=== PATIENT | male | born 1975 ===

== ENCOUNTER 2022-06-10 15:52 | Emergency (ER) | payer BC, SELFPAY ==
--- NOTE | ~2022-06-10 | XR_ITS ---
EXAMINATION: XR RIBS, LEFT CLINICAL INFORMATION: Left-sided chest pain and rib pain COMPARISON: None TECHNIQUE: Frontal view of chest 3 views of the left ribs were obtained. FINDINGS: Lungs are clear. No consolidation, pneumothorax, or pleural effusion. The cardiomediastinal silhouette and pulmonary vasculature are normal. Osseous structures are unremarkable. Ribs are intact. No fractures are identified. Metallic BB over the left chest near the posterior seventh rib. XR/XR ribs LT min 3V w CXR1V IMPRESSION: Unremarkable examination.
[2022-06-10 16:07] VITALS: BP 145/74; PULSE 92; RESP 16; TEMP 36; O2SAT 96; BMI 29.8
--- NOTE | 2022-06-10 16:10 | ECG_ITS ---
Test Reason : CHEST PAIN Blood Pressure : / mmHG Vent. Rate : 080 BPM Atrial Rate : 080 BPM P-R Int : 142 ms QRS Dur : 084 ms QT Int : 404 ms P-R-T Axes : 046 066 050 degrees QTc Int : 465 ms Normal sinus rhythm Normal ECG No previous ECGs available Referred By: Montserrat Carrillo Electronically Signed By:STEPHEN SMITH MD
--- NOTE | 2022-06-10 16:10 | ED_ITS ---
HPI - Chest Pain General Chief Complaint: Chest Pain Stated Complaint: Rib Pain Time Seen by Provider: 06/10/22 18:01 Source: patient Mode of arrival: ambulatory Limitations: no limitations History of Present Illness HPI narrative: 47yoM c PMHx of HTN noncompliant who is presenting to the ER with complaints of left rib/chest pain that has been present for a week. Worse with bending over forward, palpation and deep inspiration. Reports that he is currently on methadone and recently used cocaine approximately 1 week ago. Reports that he did not have the chest pain when he used cocaine. Denies any dizziness, changes in vision, nausea/vomiting, dyspnea on exertion, shortness of breath, cough, lower extremity swelling, paresthesias, focal weakness or recent trauma or injury, rashes or any other symptoms complaints or concerns at this time. MD complaint: chest pain (/chest wall pain) Onset (ago): week(s) (1) Timing of current episode: constant Prior episodes: No Onset: other (Cannot recall) Pain location: left chest (Chest wall) Pain radiation: none Severity: moderate Quality: aching and sharp (Spasming) Relieving factors: nothing Exacerbating factors: inspiration, palpation and movement Treatment prior to arrival: none Risk Factors Coronary artery disease risk factors: hypertension Thoracic aortic dissection risk factors: longstanding hypertension Related Data Previous Rx's Medication Instructions Recorded cyclobenzaprine 10 mg tablet 10 mg PO Q8H #14 tabs 06/10/22 naproxen 500 mg tablet 500 mg PO BID PRN pain #14 tabs 06/10/22 oxycodone 5 mg tablet 5 mg PO Q6H PRN pain #14 tabs 06/10/22 Allergies Allergy/AdvReac Type Severity Reaction Status Date / Time No Known Allergies Allergy Unverified 02/07/20 15:55 Review of Systems Review of Systems: Constitutional : No Weight loss, No Fever, No Chills, No Night Sweats, No Fatigue, No Malaise ENT/Mouth : No Hearing loss, No Ear Pain, No Nasal Congestion, No Sinus Pain, No Hoarseness, No sore throat, No Rhinorrhea, No Swallowing Difficulty Eyes: No Eye Pain, No Swelling, No Redness, No Foreign Body, No Discharge, No Vision Changes Cardiovascular : + Chest Pain, No SOB, No Dyspnea on Exertion, No Orthopnea, No Edema, No Palpitations Respiratory : No Cough, No Sputum, No Wheezing, No Smoke Exposure, No Dyspnea Gastrointestinal : No Nausea, No Vomiting, No Diarrhea, No Constipation, No abdominal Pain, No Hematochezia, No Melena Genitourinary : no irregular bleeding, No Dysuria, No Urinary Frequency, No Hematuria, No Urinary Incontinence, No Urgency, No Flank Pain, No Urinary Flow Changes, No Hesitancy Musculoskeletal : No joint pain, No Myalgias, No Joint Swelling Skin : No Skin Lesions, No rash Neuro : No Weakness, No Numbness, No Paresthesias, No Loss of Consciousness, No Dizziness, No Headache Psych : No Anxiety/Panic, No Depression, No SI/HI/AH/VH, No Social Issues, Heme/Lymph: No Bruising, No Bleeding,No Lymphadenopathy Endocrine : No Polyuria, No Polydipsia, No Temperature Intolerance Yes all other systems are reviewed and are negative [facility] Past Medical History Attestation statement: The following information was validated with the patient. Source: old records reviewed and nursing notes reviewed Social History Social History Advance Directives: No Advance Directives Information Provided: No Physical Exam Vital Signs: Vital Signs: Last Vital Signs Temp 98.8 F 06/10/22 17:45 Pulse 76 06/10/22 17:45 Resp 11 L 06/10/22 17:45 BP 138/67 06/10/22 17:45 Pulse Ox 96 06/10/22 17:45 O2 Del Method 06/10/22 17:45 BMI result Body Mass Index 29.8 Vital signs reviewed. Blood pressure normal. Pulse normal. Respiration normal. Oxygen normal. Temperature normal. Appearance: Alert. Oriented X3. No acute distress. Head: Normal external exam. Normocephalic. Atraumatic. Eyes: PERRLA. EOMI. Conjunctiva and sclera normal. Eyelids normal. ENT: EAC normal. TM's Normal. Pharynx normal. Uvula midline. Moist mucous membranes. No lesions/ulcerations or masses noted on the tongue. Normal voice. No trismus noted. No drooling noted. No muffled voice noted. Neck: Normal inspection. Neck supple. FROM. No adenopathy. Thyroid Normal. No meningeal signs. CVS: Normal heart rate and rhythm. Heart sound normal. Pulses normal throughout. No murmurs/rales/gallops. Respiratory: No respiratory distress. Painless inspiration. Breath sounds normal . No wheezes/rales/rhonchi noted. Chest moderate tenderness to the left anterior/lateral chest wall. No accessory muscle usage noted or decreased air movement noted. No crepitus is noted. No signs of trauma noted. No rashes are noted. Abdomen: Soft and nontender. Back: Full range of motion noted. Nontender. Skin: Skin warm and dry. Normal skin color. Normal skin turgor. No rashes/lesions/lacerations noted. Extremities: Extremities exhibit normal range of motion and nontender. Neuro: Oriented X 3. No motor deficit. No sensory deficit. Reflexes normal. Normal steady gait. No focal neuro deficits noted. CN's II-XII intact bilaterally? Vascular: + radial pulses. Normal cap refill. No cyanosis noted to upper extremity nails Course Course Course Narrative: RME-16:15PM - 47yoM c PMHx of HTN noncompliant who is presenting to the ER with complaints of left rib/chest pain that has been present for a week. Worse with bending over forward, palpation and deep inspiration. Reports that he is currently on methadone and recently used cocaine approximately 1 week ago. Reports that he did not have the chest pain when he used cocaine. Denies any dizziness, changes in vision, nausea/vomiting, dyspnea on exertion, shortness of breath, cough, lower extremity swelling, paresthesias, focal weakness or recent trauma or injury, rashes or any other symptoms complaints or concerns at this time. On exam he does have reproducible chest wall tenderness. No rashes are noted. Lungs clear to auscultation. CV RRR. Plan: Will obtain labs, EKG, chest x-ray and rib x-ray patient will be sent back to the waiting room to be evaluated in the ED. Reevaluation(s) Reevaluation #1: Labs obtained reviewed and [place] [id number]. Mild baseline anemia which is similar compared to priors with an H&H of 13.5/41.3. Random glucose 120. Otherwise all other labs are within normal limits. Negative troponin. Chest x-ray within normal limits no acute processes are noted. Rib x-rays are within normal limits. EKG is normal sinus rhythm no acute ischemic change are noted with ventricular rate of 80 with a normal NH interval normal QRS duration normal QT/QTC normal. No acute ischemic change are noted. No prior EKGs to compare to at this time. Therefore patient most likely muscular skeletal pain. As patient reports mild symptomatic relief with the Flexeril naproxen. Will DC home with symptomatic treatment instructions return if any new or worsening symptoms to follow up with primary care provider. Patient understands agrees with this plan. Time: 19:16 Medications Administered Discontinued Medications Generic Name Dose Route Start Last Admin Trade Name Freamy PRN Reason Stop Dose Admin Cyclobenzaprine HCl 10 mg 06/10/22 18:12 06/10/22 18:30 Cyclobenzaprine Hcl 10 Mg Tablet PO 06/10/22 18:13 10 mg ONCE ONE Administration Dexamethasone 10 mg 06/10/22 18:12 06/10/22 18:30 Dexamethasone 2 Mg Tablet PO 06/10/22 18:13 10 mg ONCE ONE Administration Lidocaine 1 patch 06/10/22 18:12 06/10/22 18:31 Lidocaine 4 % Patch Adh..Patch TRANSDERMA 06/10/22 18:13 1 patch ONCE ONE Administration Protocol Naproxen 500 mg 06/10/22 18:12 06/10/22 18:30 Naproxen 500 Mg Tablet PO 06/10/22 18:13 500 mg ONCE ONE Administration Medical Decision Making Lab Data MDM Lab Attestation statement: I reviewed the patient's lab results. 06/10/22 16:54 06/10/22 16:55 Labs: Lab Results 06/10/22 06/10/22 06/10/22 Range/Units 16:54 16:55 16:55 WBC 11.8 H (4.8-10.8) X10*3/uL RBC 5.03 (4.60-5.80) X10*6/uL Hgb 13.5 L (14.0-18.0) g/dl Hct 41.3 L (42.0-52.0) % MCV 82.1 (80.0-98.0) fL MCH 26.8 L (27.0-33.0) pg MCHC 32.7 (31.0-36.0) g/dl RDW 14.2 (11.0-16.0) % Plt Count 273 (160-400) X10*3/uL MPV 10.0 (9.4-12.4) fL Immature Gran % (Auto) 0.8 H (0.0-0.4) % Neut % (Auto) 59.9 (45-73) % Lymph % (Auto) 30.2 (20-40) % Warrick % (Auto) 7.4 (2-11) % Eos % (Auto) 1.4 (0-4) % Baso % (Auto) 0.3 (0-2) % Lymph # (Auto) 3.6 (1.2-4.9) X10*3/uL Warrick # (Auto) 0.9 (0.1-1.2) X10*3/uL Eos # (Auto) 0.2 (0.0-0.4) X10*3/uL Baso # (Auto) 0.0 (0.0-0.2) X10*3/uL Abs Immat Gran (auto) 0.09 H (0.00-0.03) X10*3/uL Absolute Neuts (auto) 7.1 (2.0-8.3) x10*3/uL Absolute Nucleated RBC 0.000 (0.0-0.012) X10*3/uL Nucleated RBC % (auto) 0.0 (0.0-0.2) /100WBC PT 11.2 (10.0-13.1) SEC INR 1.0 (0.9-1.1) Sodium 141 (135-145) mmol/L Potassium 4.0 (3.3-5.1) mmol/L Chloride 108 (96-108) mmol/L Carbon Dioxide 24 (22-29) mmol/L Anion Gap 13 (12-20) BUN 12 (9-16) mg/dL Creatinine 0.89 (0.5-1.4) mg/dL Estim Creat Clear Calc 126.8 Estimated GFR > 60 Random Glucose 120 H (60-115) mg/dL Calcium 9.1 (8.4-10.2) mg/dL Magnesium 2.1 (1.6-2.6) mg/dL Total Bilirubin 0.2 (0.0-1.0) mg/dL AST 15 (5-37) U/L ALT 20 (0-40) U/L Alkaline Phosphatase 73 (39-117) U/L Total Creatine Kinase 63 (38-174) U/L Troponin I High Sens (<3.5-35.0) ng/L Total Protein 7.0 (6.5-8.0) g/dL Albumin 4.1 (3.5-5.0) g/dL 06/10/22 Range/Units 16:55 WBC (4.8-10.8) X10*3/uL RBC (4.60-5.80) X10*6/uL Hgb (14.0-18.0) g/dl Hct (42.0-52.0) % MCV (80.0-98.0) fL MCH (27.0-33.0) pg MCHC (31.0-36.0) g/dl RDW (11.0-16.0) % Plt Count (160-400) X10*3/uL MPV (9.4-12.4) fL Immature Gran % (Auto) (0.0-0.4) % Neut % (Auto) (45-73) % Lymph % (Auto) (20-40) % Warrick % (Auto) (2-11) % Eos % (Auto) (0-4) % Baso % (Auto) (0-2) % Lymph # (Auto) (1.2-4.9) X10*3/uL Warrick # (Auto) (0.1-1.2) X10*3/uL Eos # (Auto) (0.0-0.4) X10*3/uL Baso # (Auto) (0.0-0.2) X10*3/uL Abs Immat Gran (auto) (0.00-0.03) X10*3/uL Absolute Neuts (auto) (2.0-8.3) x10*3/uL Absolute Nucleated RBC (0.0-0.012) X10*3/uL Nucleated RBC % (auto) (0.0-0.2) /100WBC PT (10.0-13.1) SEC INR (0.9-1.1) Sodium (135-145) mmol/L Potassium (3.3-5.1) mmol/L Chloride (96-108) mmol/L Carbon Dioxide (22-29) mmol/L Anion Gap (12-20) BUN (9-16) mg/dL Creatinine (0.5-1.4) mg/dL Estim Creat Clear Calc Estimated GFR Random Glucose (60-115) mg/dL Calcium (8.4-10.2) mg/dL Magnesium (1.6-2.6) mg/dL Total Bilirubin (0.0-1.0) mg/dL AST (5-37) U/L ALT (0-40) U/L Alkaline Phosphatase (39-117) U/L Total Creatine Kinase (38-174) U/L Troponin I High Sens < 3.5 (<3.5-35.0) ng/L Total Protein (6.5-8.0) g/dL Albumin (3.5-5.0) g/dL Independent Interpretation I performed an independent interpretation of an: EKG and Plain X-Ray Radiology Impression Discussion of test interpretation with radiology: I have reviewed the radiologist's reading. Discharge Plan Discharge Clinical Impression: Chest wall muscle strain Patient Disposition: Home, Self-Care Instructions: Muscle Strain (ED) Prescriptions: New naproxen 500 mg tablet 500 mg PO BID PRN (Reason: pain) Qty: 14 0RF cyclobenzaprine 10 mg tablet 10 mg PO Q8H Qty: 14 0RF oxycodone 5 mg tablet 5 mg PO Q6H PRN (Reason: pain) Qty: 14 0RF Rx Instructions: Partial Fill upon patient request. I am aware that the patient is on methadone. Referrals: [place] [Primary Care Provider] - Stand Alone Forms: Work/School Release Interventions: ED Discharge Assessment Last Done: 06/10/22 19:21 Discharge Date/Time: 06/10/22 19:26
[2022-06-10 17:05] LABS: MANUAL DIFF FLAG NO
[2022-06-10 17:06] LABS: Basophils Percent Auto 0.3 % (0-2); Eosinophils Absolute Auto 0.2 X10*3/uL (0.0-0.4); Eosinophils Percent Auto 1.4 % (0-4); Hematocrit 41.3 % (42.0-52.0); Hemoglobin 13.5 g/dl (14.0-18.0); Imm Gran Abs Auto 0.09 X10*3/uL (0.00-0.03); Imm Gran Pct Auto 0.8 % (0.0-0.4); Lymphocytes Absolute Auto 3.6 X10*3/uL (1.2-4.9); Lymphocytes Percent Auto 30.2 % (20-40); Mean Corpuscular HGB Conc 32.7 g/dl (31.0-36.0); Mean Corpuscular Hemoglobin 26.8 pg (27.0-33.0); Mean Corpuscular Volume 82.1 fL (80.0-98.0); Monocytes Absolute Auto 0.9 X10*3/uL (0.1-1.2); Monocytes Percent Auto 7.4 % (2-11); Neutrophils Absolute Auto 7.1 x10*3/uL (2.0-8.3); Neutrophils Percent Auto 59.9 % (45-73); Platelet Count 273 X10*3/uL (160-400); Red Blood Count 5.03 X10*6/uL (4.60-5.80); Red Cell Distribution Width 14.2 % (11.0-16.0); White Blood Count 11.8 X10*3/uL (4.8-10.8)
[2022-06-10 17:14] LABS: Prothrombin Time 11.2 SEC (10.0-13.1)
[2022-06-10 17:23] LABS: Alanine Aminotransferase 20 U/L (0-40); Albumin Level 4.1 g/dL (3.5-5.0); Alkaline Phosphatase 73 U/L (39-117); Anion Gap 13 (12-20); Aspartate Amino Transferase 15 U/L (5-37); Bilirubin Total 0.2 mg/dL (0.0-1.0); Blood Urea Nitrogen 12 mg/dL (9-16); Calcium 9.1 mg/dL (8.4-10.2); Carbon Dioxide 24 mmol/L (22-29); Chloride 108 mmol/L (96-108); Creatinine Clr Calc Pharmacy 126.8; Estimated Glomerular Filt Rate > 60; Glucose Random 120 mg/dL (60-115); Magnesium 2.1 mg/dL (1.6-2.6); Sodium 141 mmol/L (135-145)
[2022-06-10 17:45] VITALS: BP 138/67; PULSE 76; RESP 11; TEMP 37.1; O2SAT 96
[2022-06-10 17:47] LABS: Troponin-I High Sensitivity < 3.5 ng/L (<3.5-35.0)
[2022-06-10] MEDS: dexAMETHasone 2 MG TABLET 10 MG PO (18:30)
[2022-06-10] MEDS: Cyclobenzaprine HCl 10 MG TABLET PO (18:30)
[2022-06-10] MEDS: NaPROXEN 500 MG TABLET PO (18:30)
[2022-06-10] MEDS: Lidocaine 4 % Patch ADH..PATCH 1 PATCH TRANSDERMA (18:31)
== END 2022-06-10 19:26 | disposition home or self-care (01) ==
PROVIDERS: Physician Assistant Medical; Emergency Provider Emergency Medicine
DX: R07.89 Other chest pain (principal); R07.81 Pleurodynia; I10 Essential (primary) hypertension; Z79.899 Other long term (current) drug therapy
CPT/HCPCS: 36415; 71101; 80053; 80307; 82550; 83735; 84484; 85025; 85610; 93005; 99284; J8540

== ENCOUNTER 2023-02-05 13:49 | Emergency (ER) | payer BC, OTHER, SELFPAY ==
--- NOTE | ~2023-02-05 | XR_ITS ---
EXAMINATION: XR CHEST CLINICAL INFORMATION: Cough. Shortness of breath. COMPARISON: Chest radiograph done on 06/10/2022. TECHNIQUE: 2 views of the chest were obtained. FINDINGS: Single radiopaque foreign body is projecting at the left perihilar region, seen only on the frontal projection, unchanged since 06/10/2022. Otherwise lung allen are clear. The cardiac mediastinal silhouette is within normal limit. No evidence of any pleural effusion or pneumothorax. Visualized upper abdomen is unremarkable. XR/XR chest 2V IMPRESSION: No radiographic evidence of acute cardiopulmonary disease. Persistent stable radiopaque foreign body projecting along the left perihilar region, seen only on the frontal projection, unchanged since 06/10/2022.
[2023-02-05 14:35] VITALS: BP 142/74; PULSE 70; RESP 16; TEMP 36.8; O2SAT 99; BMI 29.8
[2023-02-05 14:55] VITALS: BP 141/76; PULSE 64; TEMP 36.8; O2SAT 97
--- NOTE | 2023-02-05 15:10 | PC.NURSE ---
swabs obtained and sent - pending results. complaining of generalized body aches and nausea.
[2023-02-05 15:11] LABS: COVID-19 Test Negative (Negative); IDNOW Serial# 08D9AD1C; IDNOW Serial# BCCEAD1C; Influenza A Negative (Negative); Influenza B2 Negative (Negative)
--- NOTE | 2023-02-05 15:47 | ED.GENADULT ---
HPI - General Adult General Chief complaint: General Medical Stated complaint: nausea Time Seen by Provider: 02/05/23 14:42 Source: patient Mode of arrival: ambulatory History of Present Illness HPI narrative: 48-year-old male who reports body aches, chills and sweats, headache and nausea for 2 days. The only prescription medication that he takes is methadone but there is a diagnosis of hypertension. Related Data Previous Rx's Medication Instructions Recorded cyclobenzaprine 10 mg tablet 10 mg PO Q8H #14 tabs 06/10/22 naproxen 500 mg tablet 500 mg PO BID PRN pain #14 tabs 06/10/22 oxycodone 5 mg tablet 5 mg PO Q6H PRN pain #14 tabs 06/10/22 Allergies Allergy/AdvReac Type Severity Reaction Status Date / Time No Known Allergies Allergy Unverified 02/07/20 15:55 Review of Systems Review of Systems: Pertinent positives and negatives as stated in HPI [facility] Past Medical History Source: nursing notes reviewed Social History Social History Advance Directives: No Advance Directives Information Provided: Yes Physical Exam ED Vital Signs: Vital Signs - 24 hr 02/05/23 14:35 02/05/23 14:55 Temperature 98.3 F 98.2 F Pulse Rate 70 64 Respiratory Rate 16 Blood Pressure 142/74 H 141/76 H Pulse Oximetry 99 97 Oxygen Delivery Method Room Air Room Air BMI result Body Mass Index 29.8 VITAL SIGNS: Reviewed. GENERAL: Well developed, well nourished, in no acute distress. HEAD: Normocephalic/atramatic, EYES: PERRLA, EOMI EARS: Ext canals without abnormality, TMs non-bulging and non-erythematous NOSE: Nares patent bilateral OROPHARYNX: no oral lesions noted, posterior pharynx clear and non-erythematous without noted tonsillar enlargement/erythema/exudates NECK: Supple, no adenopathy LUNGS: Normal breath sounds. No adventitious sounds or accessory muscle use. SpO2<97> CARDIOVASCULAR: Regular rate and rhythm without noted murmurs ABDOMEN: Soft, non-tender, non-distended with bowel sounds. MUSCULOSKELETAL: No tenderness, deformities, or effusions noted on gross inspection. EXTREMITIES: No cyanosis, clubbing or edema. SKIN: Inspection of the skin reveals no rashes NEUROLOGIC: Alert and oriented x 4. Strength and sensation to light touch were grossly intact x 4. Medical Decision Making Medical Decision Making [facility] Narrative: 1530: 48-year-old male with history and clinical presentation, DDX: Viral infection, pneumonia I reviewed viral serology was negative for influenza and COVID-19. Signed out to Dr Jorge L Tom f/u CXR, UA Differential Diagnosis Differential Diagnoses: The differential diagnosis associated with the presentation includes Please see the discussion above Admission/Observation Consideration of admission/observation: Escalation of care including admission/observation considered Please see the discussion above Lab Data [facility] Lab Attestation statement: I reviewed the patient's lab results. Please see the discussion above Labs: Lab Results 02/05/23 Range/Units 14:49 COVID-19 (QUITA) Negative (Negative) COVID-19 Clin Com See Note Influenza Type A ([facility]) Negative (Negative) Influenza Type B ([facility]) Negative (Negative) Influenza A & B Note See Note Discharge Plan Discharge Clinical Impression: Viral syndrome Patient Disposition: Still a Patient Prescriptions: No Action naproxen 500 mg tablet 500 mg PO BID PRN (Reason: pain) Qty: 14 0RF cyclobenzaprine 10 mg tablet 10 mg PO Q8H Qty: 14 0RF oxycodone 5 mg tablet 5 mg PO Q6H PRN (Reason: pain) Qty: 14 0RF Rx Instructions: Partial Fill upon patient request. I am aware that the patient is on methadone.
[2023-02-05 16:04] LABS: Appearance Urine Clear; Color Urine Yellow; Glucose Urine UA Negative (Negative); Leukocyte Esterase Urine Negative (Negative); Nitrite Urine Negative (Negative); Specific Gravity - Urine 1.025 (1.005-1.025); Urine Blood Negative (Negative); Urine Ketones Trace mg/dL (Negative); Urine Protein Negative (Neg-Trace)
== END 2023-02-05 17:25 | disposition home or self-care (01) ==
PROVIDERS: Student in an Organized Health Care Education/Training Program; Emergency Provider Emergency Medicine Emergency Medical Services
DX: B34.9 Viral infection, unspecified (principal); R11.0 Nausea; R68.83 Chills (without fever); R61 Generalized hyperhidrosis; I10 Essential (primary) hypertension; Z11.52 Encounter for screening for COVID-19; Z79.899 Other long term (current) drug therapy
CPT/HCPCS: 71046; 81003; 87502; 87635; 99283; 99284

== ENCOUNTER 2023-02-10 15:26 | Emergency (ER) | payer BC, OTHER, SELFPAY ==
[2023-02-10 16:03] VITALS: BP 145/100; PULSE 86; RESP 18; TEMP 37.3; O2SAT 100; BMI 25.7
--- NOTE | 2023-02-10 16:04 | ED.GENADULT ---
HPI - General Adult General Chief complaint: Nausea/Vomiting/Diarrhea Stated complaint: chills,vomiting sent from dr's Time Seen by Provider: 02/11/23 00:07 Source: patient Mode of arrival: ambulatory Limitations: no limitations History of Present Illness HPI narrative: Patient complaining of severe nausea body aches lightheadedness for last 4 -5 days patient was seen here 4 days ago for same lab workup was negative COVID flu negative no recent travel no tick bite or mosquito bite no fever no chills patient feels severely nauseated with body aches no tick bite Related Data Previous Rx's Medication Instructions Recorded cyclobenzaprine 10 mg tablet 10 mg PO Q8H #14 tabs 06/10/22 naproxen 500 mg tablet 500 mg PO BID PRN pain #14 tabs 06/10/22 oxycodone 5 mg tablet 5 mg PO Q6H PRN pain #14 tabs 06/10/22 doxycycline hyclate 100 mg tablet 100 mg PO BID #20 tabs 02/11/23 ondansetron 4 mg disintegrating 4 mg PO Q6-8H PRN nausea and 02/11/23 tablet vomiting #10 tabs Allergies Allergy/AdvReac Type Severity Reaction Status Date / Time No Known Allergies Allergy Unverified 02/07/20 15:55 Review of Systems Review of Systems: Yes all other systems are reviewed and are negative [facility] Social History Social History Advance Directives: No Advance Directives Information Provided: Yes Physical Exam ED Vital Signs: Vital Signs - 24 hr 02/10/23 16:03 02/10/23 22:59 02/10/23 23:28 Temperature 99.2 F 98.6 F 98.8 F Pulse Rate 86 92 82 Respiratory Rate 18 16 16 Blood Pressure 145/100 H 150/94 H 150/79 H Pulse Oximetry 100 95 98 Oxygen Delivery Method Room Air Room Air Room Air 02/11/23 00:04 02/11/23 01:44 02/11/23 01:47 Temperature 98.3 F Pulse Rate 78 68 71 Respiratory Rate 18 Blood Pressure 160/82 H 137/88 125/80 Pulse Oximetry 96 Oxygen Delivery Method Room Air 02/11/23 01:48 02/11/23 02:00 Temperature Pulse Rate 75 62 Respiratory Rate Blood Pressure 133/81 133/81 Pulse Oximetry 98 Oxygen Delivery Method BMI result Body Mass Index 25.7 Appearance: Alert. Oriented X3. No acute distress. Eyes: PERRLA, No Nystagmus ENT: Pharynx normal. Oral Mucosa moist Neck: Normal inspection. Neck supple. CVS: Normal heart rate and rhythm. Pulses normal. Respiratory: No respiratory distress. Equal air entry bilateral, no wheezing/rales/rhonchi Abdomen: Soft and nontender. Bowel sounds are present, no mass palpable, no CVA tenderness Skin: Skin warm and dry. Normal skin color. Normal skin turgor. Extremities: No lower extremity edema. No calf tenderness Neuro: Oriented X 3. No motor deficit. No sensory deficit.No cerebellar signs , cranial nerves II-XII intact Course Course Course Narrative: This is a rapid medical exam: Additional HPI, ROS, PE not included below will be deferred to primary provider. Patient is a 48-year-old male with history of HTN presenting to the emergency department from PCP office stating he was seen here on 02/05, diagnosed with viral syndrome. States he has been feeling worse since discharge. Having nausea and dry heaves, dizziness. Denies chest pain or shortness of breath. States had diarrhea initially which has since resolved but vomited four times today. Denies fevers. PCP office states that patient admits to IV drug use to them, but stated he had not used in 5 days. Plan: UA, labs Medications Administered Discontinued Medications Generic Name Dose Route Start Last Admin Trade Name Freq PRN Reason Stop Dose Admin Doxycycline Monohydrate 100 mg 02/11/23 01:45 02/11/23 02:01 Doxycycline Monohydrate 100 Mg Capsule PO 02/11/23 01:46 100 mg ONCE ONE Administration Sodium Chloride 1,000 mls @ 999 mls/hr 02/11/23 00:26 02/11/23 02:06 Ns IV 02/11/23 01:26 Infused .Q1H1M ONE Infusion Ketorolac Tromethamine 30 mg 02/11/23 01:50 02/11/23 02:00 Ketorolac Tromethamine 30 Mg/Ml Vial IVPUSH 02/11/23 01:51 30 mg ONCE ONE Administration Metoclopramide HCl 10 mg 02/11/23 01:50 02/11/23 02:00 Metoclopramide Hcl 10 Mg/2 Ml Vial IVPUSH 02/11/23 01:51 10 mg ONCE ONE Administration Ondansetron HCl 4 mg 02/11/23 00:26 02/11/23 00:43 Ondansetron Hcl 4 Mg/2 Ml Vial IVPUSH 02/11/23 00:27 4 mg ONCE ONE Administration Medical Decision Making Medical Decision Making [facility] Narrative: Patient with worsened on possible tick-borne disease with 4- 5 days of bodies body aches low-grade fever discharge patient home on doxycycline Lab Data [facility] Lab Attestation statement: I reviewed the patient's lab results. 02/10/23 16:30 02/10/23 16:30 Labs: Lab Results 02/10/23 02/10/23 Range/Units 16:30 23:26 WBC 13.7 H (4.8-10.8) X10*3/uL RBC 5.83 H (4.60-5.80) X10*6/uL Hgb 15.4 (14.0-18.0) g/dl Hct 47.5 (42.0-52.0) % MCV 81.5 (80.0-98.0) fL MCH 26.4 L (27.0-33.0) pg MCHC 32.4 (31.0-36.0) g/dl RDW 13.8 (11.0-16.0) % Plt Count 279 (160-400) X10*3/uL MPV 9.6 (9.4-12.4) fL Immature Gran % (Auto) 0.7 H (0.0-0.4) % Neut % (Auto) 60.2 (45-73) % Lymph % (Auto) 31.1 (20-40) % [place] % (Auto) 7.3 (2-11) % Eos % (Auto) 0.4 (0-4) % Baso % (Auto) 0.3 (0-2) % Lymph # (Auto) 4.2 (1.2-4.9) X10*3/uL [place] # (Auto) 1.0 (0.1-1.2) X10*3/uL Eos # (Auto) 0.1 (0.0-0.4) X10*3/uL Baso # (Auto) 0.0 (0.0-0.2) X10*3/uL Abs Immat Gran (auto) 0.10 H (0.00-0.03) X10*3/uL Absolute Neuts (auto) 8.2 (2.0-8.3) x10*3/uL Absolute Nucleated RBC 0.000 (0.0-0.012) X10*3/uL Nucleated RBC % (auto) 0.0 (0.0-0.2) /100WBC Sodium 138 (135-145) mmol/L Potassium 4.0 (3.3-5.1) mmol/L Chloride 106 (96-108) mmol/L Carbon Dioxide 23 (22-29) mmol/L Anion Gap 13 (12-20) BUN 12 (9-16) mg/dL Creatinine 0.76 (0.5-1.4) mg/dL Estim Creat Clear Calc 131.8 Estimated GFR > 60 Random Glucose 100 (60-115) mg/dL Calcium 10.2 D (8.4-10.2) mg/dL Total Bilirubin 0.4 (0.0-1.0) mg/dL AST 16 (5-37) U/L ALT 20 (0-40) U/L Alkaline Phosphatase 74 (39-117) U/L Total Protein 8.3 H (6.5-8.0) g/dL Albumin 4.9 (3.5-5.0) g/dL Lipase 10 (8-78) U/L Urine Color Dark Yellow Urine Appearance Cloudy Urine pH 5.5 (5.0-9.0) Ur Specific [place] >= 1.030 H (1.005-1.025) Urine Protein 30 (1+) H (Neg-Trace) mg/dL Urine Glucose (UA) Negative (Negative) mg/dL Urine Ketones Trace (Negative) mg/dL Urine Blood Negative (Negative) Urine Nitrite Negative (Negative) Ur Leukocyte Esterase Negative (Negative) Urine RBC 0-2 (0-2) /HPF Urine WBC 0-5 (0-5) /HPF Ur Squamous Epith Cells 0-2 (0-2) /HPF Urine Bacteria None Seen (None Seen) Hyaline Casts 3-5 (0-2) /LPF COVID-19 (QUITA) Negative (Negative) COVID-19 Clin Com See Note Influenza Type A ([place]) Negative (Negative) Influenza Type B ([place]) Negative (Negative) Influenza A & B Note See Note Discharge Plan Discharge Clinical Impression: Acute viral syndrome Patient Disposition: Home, Self-Care Instructions: Viral Syndrome (ED) Additional Instructions: Cause of your symptoms not very clear likely a virus or atypical bacteria Take antibiotic as prescribed Zofran for nausea Follow with PCP if not better Drink plenty of fluids Prescriptions: New ondansetron 4 mg tablet,disintegrating 4 mg PO Q6-8H PRN (Reason: nausea and vomiting) Qty: 10 0RF doxycycline hyclate 100 mg tablet 100 mg PO BID Qty: 20 0RF No Action naproxen 500 mg tablet 500 mg PO BID PRN (Reason: pain) Qty: 14 0RF cyclobenzaprine 10 mg tablet 10 mg PO Q8H Qty: 14 0RF oxycodone 5 mg tablet 5 mg PO Q6H PRN (Reason: pain) Qty: 14 0RF Rx Instructions: Partial Fill upon patient request. I am aware that the patient is on methadone. Stand Alone Forms: Work/School Release Discharge Date/Time: 02/11/23 03:14
[2023-02-10 16:36] LABS: MANUAL DIFF FLAG NO
[2023-02-10 16:39] LABS: Basophils Percent Auto 0.3 % (0-2); Eosinophils Absolute Auto 0.1 X10*3/uL (0.0-0.4); Eosinophils Percent Auto 0.4 % (0-4); Hematocrit 47.5 % (42.0-52.0); Hemoglobin 15.4 g/dl (14.0-18.0); Imm Gran Pct Auto 0.7 % (0.0-0.4); Lymphocytes Absolute Auto 4.2 X10*3/uL (1.2-4.9); Lymphocytes Percent Auto 31.1 % (20-40); Mean Corpuscular HGB Conc 32.4 g/dl (31.0-36.0); Mean Corpuscular Hemoglobin 26.4 pg (27.0-33.0); Mean Corpuscular Volume 81.5 fL (80.0-98.0); Mean Platelet Volume 9.6 fL (9.4-12.4); Monocytes Percent Auto 7.3 % (2-11); Neutrophils Absolute Auto 8.2 x10*3/uL (2.0-8.3); Neutrophils Percent Auto 60.2 % (45-73); Platelet Count 279 X10*3/uL (160-400); Red Blood Count 5.83 X10*6/uL (4.60-5.80); Red Cell Distribution Width 13.8 % (11.0-16.0); White Blood Count 13.7 X10*3/uL (4.8-10.8)
[2023-02-10 16:52] LABS: Alanine Aminotransferase 20 U/L (0-40); Albumin Level 4.9 g/dL (3.5-5.0); Alkaline Phosphatase 74 U/L (39-117); Anion Gap 13 (12-20); Aspartate Amino Transferase 16 U/L (5-37); Bilirubin Total 0.4 mg/dL (0.0-1.0); Blood Urea Nitrogen 12 mg/dL (9-16); Calcium 10.2 mg/dL (8.4-10.2); Carbon Dioxide 23 mmol/L (22-29); Chloride 106 mmol/L (96-108); Creatinine Clr Calc Pharmacy 131.8; Estimated Glomerular Filt Rate > 60; Glucose Random 100 mg/dL (60-115); Lipase 10 U/L (8-78); Sodium 138 mmol/L (135-145); Total Protein 8.3 g/dL (6.5-8.0)
[2023-02-10 16:57] LABS: COVID-19 Test Negative (Negative); IDNOW Serial# 08D9AD1C; Influenza A Negative (Negative); Influenza B2 Negative (Negative)
[2023-02-10 22:59] VITALS: BP 150/94; PULSE 92; RESP 16; TEMP 37; O2SAT 95
[2023-02-10 23:28] VITALS: BP 150/79; PULSE 82; RESP 16; TEMP 37.1; O2SAT 98
[2023-02-10 23:35] LABS: Appearance Urine Cloudy; Color Urine Dark Yellow; Glucose Urine UA Negative (Negative); Leukocyte Esterase Urine Negative (Negative); Nitrite Urine Negative (Negative); PH 5.5 (5.0-9.0); Specific Gravity - Urine >= 1.030 (1.005-1.025); UMIC TRIGGER UACC YES; Urine Blood Negative (Negative); Urine Ketones Trace mg/dL (Negative); Urine Protein 30 (1+) mg/dL (Neg-Trace)
[2023-02-10 23:38] LABS: Bacteria Urine None Seen (None Seen); RBC Urine 0-2 /HPF (0-2); Squamous Epithelial Cell Urine 0-2 /HPF (0-2); WBC Urine 0-5 /HPF (0-5)
[2023-02-11 00:04] VITALS: BP 160/82; PULSE 78; RESP 18; TEMP 36.8; O2SAT 96
[2023-02-11] MEDS: 0.9 % Sodium Chloride 1,000 ML 999 ML IV (00:43)
[2023-02-11] MEDS: ondansetron HCL 4 MG/2 ML VIAL IVPUSH (00:43)
[2023-02-11 01:44] VITALS: BP 137/88; PULSE 68
[2023-02-11 01:47] VITALS: BP 125/80; PULSE 71
[2023-02-11 01:48] VITALS: BP 133/81; PULSE 75
[2023-02-11 02:00] VITALS: BP 133/81; PULSE 62; O2SAT 98
[2023-02-11] MEDS: Ketorolac Tromethamine 30 MG/ML VIAL IVPUSH (02:00)
[2023-02-11] MEDS: Metoclopramide HCl 10 MG/2 ML VIAL IVPUSH (02:00)
[2023-02-11] MEDS: Doxycycline Monohydrate 100 MG CAPSULE PO (02:01)
== END 2023-02-11 03:14 | disposition home or self-care (01) ==
PROVIDERS: Registered Nurse Emergency; Emergency Provider Internal Medicine
DX: B34.9 Viral infection, unspecified (principal); R11.2 Nausea with vomiting, unspecified; Z20.822 Contact with and (suspected) exposure to COVID-19
CPT/HCPCS: 36415; 80053; 81001; 83690; 85025; 87502; 87635; 96361; 96374; 96375; 99284; 99285; J1885; J2405; J2765

== ENCOUNTER 2024-03-26 16:41 | Emergency (ER) | payer BC, OTHER, SELFPAY ==
--- NOTE | ~2024-03-26 | CT_ITS ---
EXAMINATION: CT ABDOMEN AND PELVIS WITH CONTRAST CLINICAL INFORMATION: Pain. COMPARISON: None available. TECHNIQUE: Multidetector volumetric images were obtained from the superior aspect of the liver through the pubic symphysis following administration 85 mL of Omnipaque 350 intravenous contrast. Sagittal and coronal reformatted images were obtained on the technologist's workstation. Oral contrast: No This CT examination was performed using dose optimization techniques as appropriate, variously including the following: *Automated exposure control *Adjustment of mA and/or kV according to patient size (this includes techniques or standardized protocols for targeted exams where dose is matched to indication/reason for exam; i.e. extremities or head) *Use of iterative reconstruction technique DLP: 696 mGy-cm FINDINGS: LUNG BASES: The visualized lung bases are unremarkable. LIVER, GALLBLADDER, AND BILIARY TREE: The liver is of diminished attenuation. There is no focal liver lesion or intrahepatic biliary duct dilatation. The gallbladder is unremarkable with no evidence of radiopaque gallstones, gallbladder wall thickening, or obvious pericholecystic inflammatory changes. PANCREAS: Unremarkable. SPLEEN: Unremarkable. ADRENAL GLANDS: Unremarkable. KIDNEYS AND URETERS: The kidneys are normal in size, shape, and attenuation. No hydronephrosis, hydroureter, or calculi seen. No perinephric stranding. 1 cm hypodensity mid to lower pole right kidney likely a small cyst. BLADDER: Unremarkable. GASTROINTESTINAL TRACT: The small and large bowel are unremarkable. The appendix is not seen. There are surgical clips along the base of the cecum. ABDOMINAL WALL: Small supraumbilical hernia containing fat. LYMPH NODES: Normal. VASCULAR: There is atherosclerotic plaque of the abdominal aorta. PELVIC VISCERA: Unremarkable. OSSEOUS STRUCTURES: There is moderate L5-S1 disc degenerative change. CT/CT abdomen pelvis w IV con IMPRESSION: 1. No acute abnormality. 2. Hepatic steatosis. 3. Small supraumbilical hernia containing fat. Fleischner guidelines were followed. Electronically signed by: Shankar Interiano MD 03/27/2024 03:39 AM EST
[2024-03-26 16:44] VITALS: BP 108/34; PULSE 77; RESP 20; TEMP 36.5; O2SAT 97; BMI 29.8
--- NOTE | 2024-03-26 16:50 | ECG_ITS ---
Test Reason : SHIORTNESS OF BREATH Blood Pressure : / mmHG Vent. Rate : 064 BPM Atrial Rate : 064 BPM P-R Int : 126 ms QRS Dur : 082 ms QT Int : 534 ms P-R-T Axes : 033 043 043 degrees QTc Int : 550 ms Normal sinus rhythm Nonspecific ST abnormality Prolonged QT Abnormal ECG When compared with ECG of 10-JUN-2022 16:46, ST elevation now present in Lateral leads QT has lengthened Referred By: Ricky Huerta Electronically Signed By:STEPHEN SMITH MD
[2024-03-26 17:39] LABS: MANUAL DIFF FLAG NO
--- NOTE | 2024-03-26 17:40 | ED.GENADULT ---
HPI - General Adult General Chief complaint: Nausea/Vomiting/Diarrhea Stated complaint: Weak Nausea Ringing in Ears Time Seen by Provider: 03/26/24 19:35 Source: patient Limitations: no limitations History of Present Illness ED Provider: Karen Thompson PA-C HPI narrative: Patient is a 49 year old male who presents with a complaint of tinnitus, FU, dizziness, abdominal pain, weakness, and N/V that began yesterday evening. He states it has been worsening since that time. He states that one of his vomiting episodes contained BRB, however since then it has been mainly stomach bile, as he is not able to eat anything. His dizziness is worse when standing. His tinnitus is intermittent. He has not tried anything to alleviate his symptoms. He reports being sick last week but states that those symptoms had resolved before these ones began. States he has been constipated but had a BM this AM. Patient denies CP, SOB, recent head trauma. Patient also reports that he takes methadone, however he was unable to keep his dose down this morning. Related Data Previous Rx's ?Medication ?Instructions ?Recorded cyclobenzaprine 10 mg tablet 10 mg PO Q8H #14 tabs 06/10/22 naproxen 500 mg tablet 500 mg PO BID PRN pain #14 tabs 06/10/22 oxycodone 5 mg tablet 5 mg PO Q6H PRN pain #14 tabs 06/10/22 doxycycline hyclate 100 mg tablet 100 mg PO BID #20 tabs 02/11/23 ondansetron 4 mg disintegrating 4 mg PO Q6-8H PRN nausea and 02/11/23 tablet vomiting #10 tabs ondansetron 4 mg disintegrating 4 mg PO Q8H PRN nausea and 03/27/24 tablet vomiting #10 tabs Allergies Allergy/AdvReac Type Severity Reaction Status Date / Time No Known Allergies Allergy Verified 03/26/24 16:49 Review of Systems Review of Systems: Yes all other systems are reviewed and are negative Constitutional: Constitutional: Denies chills, Denies fever(s), Reports headache(s) and Reports weakness Eyes: Eyes: Denies diplopia, Denies loss of vision and Denies eye pain ENT: Reports vertigo, Reports dizziness, Reports headache(s), Denies post nasal drip, Reports tinnitus and Denies sore throat Cardiovascular: Cardiovascular: Denies Abdominal Distension, Denies chest pain, Denies syncope, Denies leg edema, Denies lightheadedness, Denies palpitations and Denies dyspnea Respiratory: Respiratory: Denies cough, Denies dyspnea and Denies wheezing Gastrointestinal: Gastrointestinal: Reports abdominal pain, Denies hematochezia, Denies coffee ground emesis, Reports constipation, Denies diarrhea, Reports nausea, Reports vomiting and Reports hematemesis Genitourinary: Genitourinary: Denies hematuria, Denies urinary frequency and Denies urinary urgency Musculoskeletal: Musculoskeletal: Denies back pain, Denies arthralgias, Denies joint swelling, Denies muscle cramps, Denies numbness and Denies tingling Integumentary/Breasts: Skin/Breast: Denies swelling, Denies lesions and Denies rash Neurologic: Reports vertigo, Reports dizziness, Denies syncope, Reports headache(s), Denies loss of vision, Denies numbness, Denies tingling and Reports weakness Psychiatric: Psychiatric: Denies homicidal ideation and Denies suicidal ideation Endocrine: Endocrine: Denies palpitations Allergic/Immunologic: Allergic/Immunologic: Denies wheezing PMFSH Past Medical History Attestation statement: The following information was validated with the patient. Social History Social History Smoked in Last 30 Days: Yes Use of substances other than those prescribed or required for medical reasons: Yes Substance Use Type: Heroin Substance Use Frequency: Monthly Last Used Substance: Days (ago) Advance Directives: No Advance Directives Information Provided: No Physical Exam ED Vital Signs: Vital Signs - 24 hr 03/26/24 16:44 03/26/24 19:45 03/26/24 22:11 Temperature 97.7 F 98.1 F 98.1 F Pulse Rate 77 53 63 Respiratory Rate 20 10 L 12 Blood Pressure 108/34 L 90/51 L 112/61 Pulse Oximetry 97 94 97 Oxygen Delivery Method Room Air Room Air Room Air 03/27/24 00:17 03/27/24 03:53 03/27/24 05:33 Temperature 98.1 F 98.2 F 98.1 F Pulse Rate 68 85 82 Respiratory Rate 16 13 14 Blood Pressure 109/46 L 117/57 L 135/75 Pulse Oximetry 98 99 97 Oxygen Delivery Method Room Air Room Air Room Air 03/27/24 05:54 Temperature 98.1 F Pulse Rate 82 Respiratory Rate 14 Blood Pressure 135/75 Pulse Oximetry 97 Oxygen Delivery Method Room Air BMI result Body Mass Index 29.8 Const General: cooperative, healthy appearing, comfortable, no acute distress and well developed Nutritional Appearance: average body habitus Orientation/consciousness: patient oriented x3 Limitations: no limitations HENMT Head: Yes normal to inspection, Yes normocephalic and Yes atraumatic General nose exam: Normal external nose present Eyes General: appearance normal, both eyes and all related structures Visual Tapia: normal visual tapia by confrontation Alignment and Position: alignment normal Periorbital: periorbital findings normal Eyelids: Yes eyelids normal Conjunctivae: conjunctivae normal Sclerae: sclerae normal Corneas: corneas normal Pupils: Equal, round and reactive pupils present EOM: Nystagmus present Neck Neck: Yes normal visual inspection, Yes full ROM and Yes no meningeal signs Chest Chest palpation & inspection: normal inspection of the chest Resp Effort & Inspection: normal respiratory effort, able to speak in complete sentences, no cough, not labored, no pursed lip breathing and no use of accessory muscles Auscultation: clear to auscultation bilaterally, no rales, no rhonchi and no wheezes Cardio Jugular venous distension: no JVD Rate: regular rate Rhythm: regular rhythm Heart sounds: S1 normal heart sound present and S2 normal heart sound present GI Inspection: Yes normal to inspection, No abdominal wall ecchymosis, No Abdominal wall edema and No distended Palpation (GI): Soft to palpation, not firm, Tenderness to palpation present (GI), not rigid and No Ascites present Skin Other: warm and dry, no rash General skin exam: no rashes or lesions noted Neuro General: patient oriented x3, moves all extremities, no meningeal signs and CN's II-XI intact bilaterally Cranial nerves: Yes Equal, round and reactive pupils present, Yes Ability to bilaterally rotate head present and Yes Nystagmus present with right lateral gaze Cognition (Neuro): normal cognition Motor exam (neuro): no tremor noted Extrem General: Yes normal to inspection, Yes full ROM, Yes capillary refill normal and Yes no clubbing, cyanosis or edema Psych Other: calm and cooperative Appearance: grossly normal Mental Status: mental status grossly normal Speech and movement: Normal speech and movement present and Clear speech present Affect: normal affect Attitude: cooperative Thought process: Normal thought process present Thought content: Normal thought content present Insight: Good insight present (Psych) Judgement: Good judgement present (Psych) Course Course Course Narrative: RME: 49 year male presents to ED for dizziness and ringing in the ear for 1 week. Patient's secondary complaint is epigastric abdominal pain with vomiting. Patient denies saddle withdrawal symptoms. Patient use methadone today. She last used fentanyl 2 days ago. Patient denies any chest pain or shortness of breath. NIH score is 0. Negative for any neuro deficits. Reevaluation(s) Reevaluation #1: Having to signed out to the night team pending CT scan and final disposition. Time: 02:09 Reevaluation #2: CT abdomen pelvis:1. No acute abnormality. 2. Hepatic steatosis. 3. Small supraumbilical hernia containing fat. Patient was instructed to take Tylenol/ibuprofen if needed for pain, follow-up with PCP. Time: 04:55 Medications Administered Discontinued Medications Generic Name Dose Route Start Last Admin Trade Name Freq PRN Reason Stop Dose Admin Magnesium Sulfate 2 gm in 50 mls @ 25 mls/hr 03/26/24 19:36 03/26/24 22:11 Magnesium Sulfate/H2o IV 03/26/24 21:35 Infused ONCE ONE Infusion Sodium Chloride 1,000 mls @ 999 mls/hr 03/26/24 23:45 03/27/24 00:57 Ns IV 03/27/24 00:45 Infused .Q1H1M POLLY Infusion Iohexol 85 ml 03/27/24 01:02 03/27/24 01:02 Iohexol 350 Mg/Ml 100 Ml Infus..Btl IV 03/27/24 01:03 85 ml ONCE ONE Administration Lorazepam 1 mg 03/26/24 23:57 03/27/24 00:03 Lorazepam 2 Mg/Ml Vial IVPUSH 03/26/24 23:58 1 mg ONCE ONE Administration Ondansetron HCl 4 mg 03/26/24 23:51 03/26/24 23:54 Ondansetron Hcl 4 Mg/2 Ml Vial IVPUSH 03/26/24 23:52 4 mg ONCE ONE Administration Medical Decision Making Medical Decision Making MDM Narrative: I Karen Thompson PA-C personally assessed and manage the patient, Kamilla MANN observed and helped to formulate the documentation Patient is a 49 year old male with hx of HTN, polysubstance abuse on methadone who presents with a complaint of tinnitus, FU, dizziness, abdominal pain, weakness, and N/V that began yesterday evening. He states it has been worsening since that time. He states that one of his vomiting episodes contained BRB, however since then it has been mainly stomach bile, as he is not able to eat anything. His dizziness is worse when standing. His tinnitus is intermittent. He has not tried anything to alleviate his symptoms. He reports being sick last week but states that those symptoms had resolved before these ones began. States he has been constipated but had a BM this AM. Patient denies CP, SOB, recent head trauma. Patient also reports that he takes methadone, however he was unable to keep his dose down this morning. Patient reports no PMH. Takes Methadone. DDx: peripheral or central vertigo, brain neoplasm, UGIB, sepsis/infection, constipation, bowel obstruction Plan: As the patient reports FU, dizziness, tinnitus, and N/V, it is possible that he is experiencing vertigo. As he does not report severe instability, central vertigo is less likely. Will rule out other causes first. He also reported recent illness and has been experiencing FU, weakness, N/V, and abdominal pain, therefore it's possible he is now septic. This is unlikely, as he denies fever, chills, and other systemic symptoms. Will assess with CBC. Considered brain neoplasm, however given quick onset of symptoms and associated abdominal pain, believe it is unlikely. Will rule out other causes first. Thought about UGIB due to abdominal pain and hematemesis, however patient reports only one episode of this and denies excessive vomiting, abdominal distension, and black, tarry stools. Will assess with CBC. per Karen Thompson PA-C Patient here with numerous complaints. In regard to the dizziness and tinnitus, the methadone could certainly be causing this. He has no evidence of otitis media on my exam, he has some cerumen in bilateral ears but it is not impacted. His symptoms are not vertiginous, there was also no nystagmus on exam. This is also not a stroke, he does not require advanced imaging in the way of angiograms. In regard to the abdominal pain, he is constipated. The abdomen is soft, nondistended, he is passing flatus, he has no obstructive symptoms. However his vomiting remains, we will obtain a CT scan. To note he does have a leukocytosis. This could all be viral. Giving IV fluid and Ativan as the Zofran was not helpful. His assessment began from triage, is really unclear why they ordered a troponin. It was elevated, there was no ischemic changes on the 1st EKG, we will repeat it when we get the delta troponin. Chest pain is not part of his complaint today. I have independently reviewed the following tests: Labs: Leukocytosis, not anemic, no electrolyte abnormality, troponin x2 flat, 47 and 43 respectively, utox positive for methadone, fentanyl, cocaine, marijuana EKG #!: Normal sinus rhythm, rate of 64, no ischemic change, no ectopy, QT prolonged at 550, given 2 g of magnesium EKG #2: Sinus bradycardia, rate of 51, QT improved 486, no ischemic changes CT abdomen and pelvis: Lab Data 03/26/24 17:29 03/26/24 17:29 Labs: Lab Results 03/26/24 03/26/24 03/26/24 Range/Units 17:29 17:39 20:01 WBC 14.8 H (4.8-10.8) X10*3/uL RBC 5.46 (4.60-5.80) X10*6/uL Hgb 14.9 (14.0-18.0) g/dl Hct 45.9 (42.0-52.0) % MCV 84.1 (80.0-98.0) fL MCH 27.3 (27.0-33.0) pg MCHC 32.5 (31.0-36.0) g/dl RDW 14.0 (11.0-16.0) % Plt Count 278 (160-400) X10*3/uL MPV 10.5 (9.4-12.4) fL Immature Gran % (Auto) 0.6 H (0.0-0.4) % Neut % (Auto) 71.4 (45-73) % Lymph % (Auto) 20.9 (20-40) % [place] % (Auto) 6.3 (2-11) % Eos % (Auto) 0.5 (0-4) % Baso % (Auto) 0.3 (0-2) % Lymph # (Auto) 3.1 (1.2-4.9) X10*3/uL [place] # (Auto) 0.9 (0.1-1.2) X10*3/uL Eos # (Auto) 0.1 (0.0-0.4) X10*3/uL Baso # (Auto) 0.1 (0.0-0.2) X10*3/uL Abs Immat Gran (auto) 0.09 H (0.00-0.03) X10*3/uL Absolute Neuts (auto) 10.6 H (2.0-8.3) x10*3/uL Absolute Nucleated RBC 0.000 (0.0-0.012) X10*3/uL Nucleated RBC % (auto) 0.0 (0.0-0.2) /100WBC PT 11.8 (10.9-12.4) SEC INR 1.0 (0.9-1.1) APTT 28.8 (26.0-36.8) SEC Sodium 143 (135-145) mmol/L Potassium 4.1 (3.3-5.1) mmol/L Chloride 104 (96-108) mmol/L Carbon Dioxide 24 (22-29) mmol/L Anion Gap 19 (12-20) BUN 17 H (9-16) mg/dL Creatinine 0.92 (0.5-1.4) mg/dL Estim Creat Clear Calc 120.1 Estimated GFR > 60 Random Glucose 171 H (60-115) mg/dL Calcium 10.5 H (8.4-10.2) mg/dL Magnesium 2.2 (1.6-2.6) mg/dL Total Bilirubin 0.3 (0.0-1.0) mg/dL AST 23 (5-37) U/L ALT 36 (0-40) U/L Alkaline Phosphatase 82 (39-117) U/L Troponin I High Sens 47.0 H D 43.1 H (<3.5-35.0) ng/L Total Protein 8.2 H (6.5-8.0) g/dL Albumin 4.6 (3.5-5.0) g/dL Lipase 9 (8-78) U/L Urine Color Dark Yellow Urine Appearance Cloudy Urine pH 5.5 (5.0-9.0) Ur Specific [place] >= 1.030 H (1.005-1.025) Urine Protein 30 (1+) H (Neg-Trace) mg/dL Urine Glucose (UA) Negative (Negative) mg/dL Urine Ketones Trace (Negative) mg/dL Urine Blood Negative (Negative) Urine Nitrite Negative (Negative) Ur Leukocyte Esterase Negative (Negative) Urine RBC 0-2 (0-2) /HPF Urine WBC 0-5 (0-5) /HPF Ur Squamous Epith Cells 3-5 (0-2) /HPF Urine Bacteria None Seen (None Seen) Hyaline Casts >20 (0-2) /LPF Urine Opiates Screen POSITIVE H (Not Detect) Ur Buprenorphine Scrn Not Detected (Not Detect) ng/mL Ur Oxycodone Screen Not Detected (Not Detect) ng/mL Urine Methadone Screen Positive H (Not Detect) ng/mL Urine Fentanyl Screen POSITIVE H (Not Detect) Ur Barbiturates Screen Not Detected (Not Detect) Ur Phencyclidine Scrn Not Detected (Not Detect) Ur Amphetamines Screen Not Detected (Not Detect) U Benzodiazepines Scrn Not Detected (Not Detect) Urine Cocaine Screen POSITIVE H (Not Detect) U Marijuana (THC) Screen POSITIVE H (Not Detect) Discharge Plan Discharge Clinical Impression: Constipation, Bilateral tinnitus Patient Disposition: Home, Self-Care Instructions: Constipation (ED), Tinnitus (ED) Additional Instructions: In regard to constipation, you need to stay on a bowel regimen. The methadone that you use can be constipating. Use [id number] Colace, this is a stool softener, twice a day. In addition, you need to use [id number] MiraLax, mixing the powder per package instructions, then consume a liquid several times a day until you begin having normal regular bowel movements. To note, your urine toxicology screen was positive for numerous substances which could also be making you feel poorly; methadone, fentanyl, cocaine and marijuana. In regard to the ringing in your ears, this is called tinnitus. It is likely due to a side effect associated with the methadone. You need to follow up with your primary care provider, call to be seen next week Prescriptions: New ondansetron 4 mg tablet,disintegrating 4 mg PO Q8H PRN (Reason: nausea and vomiting) Qty: 10 0RF No Action naproxen 500 mg tablet 500 mg PO BID PRN (Reason: pain) Qty: 14 0RF cyclobenzaprine 10 mg tablet 10 mg PO Q8H Qty: 14 0RF oxycodone 5 mg tablet 5 mg PO Q6H PRN (Reason: pain) Qty: 14 0RF Rx Instructions: Partial Fill upon patient request. I am aware that the patient is on methadone. ondansetron 4 mg tablet,disintegrating 4 mg PO Q6-8H PRN (Reason: nausea and vomiting) Qty: 10 0RF doxycycline hyclate 100 mg tablet 100 mg PO BID Qty: 20 0RF Stand Alone Forms: Work/School Release Interventions: ED Discharge Assessment Last Done: 03/27/24 05:54 Discharge Date/Time: 03/27/24 05:55 Print Language: Mohawk
[2024-03-26 17:42] LABS: Basophils Absolute Auto 0.1 X10*3/uL (0.0-0.2); Basophils Percent Auto 0.3 % (0-2); Eosinophils Absolute Auto 0.1 X10*3/uL (0.0-0.4); Eosinophils Percent Auto 0.5 % (0-4); Hematocrit 45.9 % (42.0-52.0); Hemoglobin 14.9 g/dl (14.0-18.0); Imm Gran Abs Auto 0.09 X10*3/uL (0.00-0.03); Imm Gran Pct Auto 0.6 % (0.0-0.4); Lymphocytes Absolute Auto 3.1 X10*3/uL (1.2-4.9); Lymphocytes Percent Auto 20.9 % (20-40); Mean Corpuscular HGB Conc 32.5 g/dl (31.0-36.0); Mean Corpuscular Hemoglobin 27.3 pg (27.0-33.0); Mean Corpuscular Volume 84.1 fL (80.0-98.0); Mean Platelet Volume 10.5 fL (9.4-12.4); Monocytes Absolute Auto 0.9 X10*3/uL (0.1-1.2); Monocytes Percent Auto 6.3 % (2-11); Neutrophils Absolute Auto 10.6 x10*3/uL (2.0-8.3); Neutrophils Percent Auto 71.4 % (45-73); Platelet Count 278 X10*3/uL (160-400); Red Blood Count 5.46 X10*6/uL (4.60-5.80); White Blood Count 14.8 X10*3/uL (4.8-10.8)
[2024-03-26 17:47] LABS: Prothrombin Time 11.8 SEC (10.9-12.4)
[2024-03-26 17:50] LABS: Partial Thromboplastin Time 28.8 SEC (26.0-36.8)
[2024-03-26 18:06] LABS: Alanine Aminotransferase 36 U/L (0-40); Albumin Level 4.6 g/dL (3.5-5.0); Alkaline Phosphatase 82 U/L (39-117); Anion Gap 19 (12-20); Aspartate Amino Transferase 23 U/L (5-37); Bilirubin Total 0.3 mg/dL (0.0-1.0); Blood Urea Nitrogen 17 mg/dL (9-16); Calcium 10.5 mg/dL (8.4-10.2); Carbon Dioxide 24 mmol/L (22-29); Chloride 104 mmol/L (96-108); Creatinine Clr Calc Pharmacy 120.1; Estimated Glomerular Filt Rate > 60; Glucose Random 171 mg/dL (60-115); Lipase 9 U/L (8-78); Potassium 4.1 mmol/L (3.3-5.1); Sodium 143 mmol/L (135-145); Total Protein 8.2 g/dL (6.5-8.0)
[2024-03-26 18:15] LABS: Appearance Urine Cloudy; Color Urine Dark Yellow; Glucose Urine UA Negative (Negative); Leukocyte Esterase Urine Negative (Negative); Nitrite Urine Negative (Negative); PH 5.5 (5.0-9.0); Specific Gravity - Urine >= 1.030 (1.005-1.025); UMIC TRIGGER UACC YES; Urine Blood Negative (Negative); Urine Ketones Trace mg/dL (Negative); Urine Protein 30 (1+) mg/dL (Neg-Trace)
[2024-03-26 18:22] LABS: Bacteria Urine None Seen (None Seen); Hyaline Casts Urine >20 /LPF (0-2); RBC Urine 0-2 /HPF (0-2); WBC Urine 0-5 /HPF (0-5)
[2024-03-26 18:24] LABS: Amphetamine Screen Urine Not Detected (Not Detect); Barbiturates, Urine Not Detected (Not Detect); Benzodiazepines Screen Urine Not Detected (Not Detect); Buprenorphine Scr Not Detected (Not Detect); Cannabinoid Screen Urine POSITIVE (Not Detect); Cocaine Screen Urine POSITIVE (Not Detect); Fentanyl, urine POSITIVE (Not Detect); Methadone Screen, Urine Positive (Not Detect); Opiate Screen Urine POSITIVE (Not Detect); Oxycodone Screen Urine Not Detected (Not Detect); Phencyclidine Screen Urine Not Detected (Not Detect)
--- NOTE | 2024-03-26 19:36 | ECG_ITS ---
Test Reason : REPEAT Blood Pressure : / mmHG Vent. Rate : 051 BPM Atrial Rate : 051 BPM P-R Int : 150 ms QRS Dur : 080 ms QT Int : 528 ms P-R-T Axes : 016 025 030 degrees QTc Int : 486 ms Sinus bradycardia Prolonged QT Abnormal ECG When compared with ECG of 26-MAR-2024 17:26, QT has shortened Referred By: Karen Thompson Electronically Signed By:STEPHEN SMITH MD
[2024-03-26 19:45] VITALS: BP 90/51; PULSE 53; RESP 10; TEMP 36.7; O2SAT 94
[2024-03-26] MEDS: Magnesium Sulfate/H2O 2 GM/50 ML PIGGYBACK IV (20:15)
[2024-03-26 20:34] LABS: Troponin-I High Sensitivity 43.1 ng/L (<3.5-35.0)
[2024-03-26 20:39] LABS: Magnesium 2.2 mg/dL (1.6-2.6)
[2024-03-26 22:11] VITALS: BP 112/61; PULSE 63; RESP 12; TEMP 36.7; O2SAT 97
--- NOTE | 2024-03-26 23:51 | PC.NURSE ---
pt nauseous, dry heaving, no vomit. pt medicated per MAR
[2024-03-26] MEDS: ondansetron HCL 4 MG/2 ML VIAL IVPUSH (23:54)
[2024-03-27] MEDS: LORazepam 2 MG/ML VIAL 1 MG IVPUSH (00:03)
[2024-03-27] MEDS: 0.9 % Sodium Chloride 1,000 ML 999 ML IV (00:04)
[2024-03-27 00:17] VITALS: BP 109/46; PULSE 68; RESP 16; TEMP 36.7; O2SAT 98
--- NOTE | 2024-03-27 00:57 | PC.NURSE ---
PT IN ct
--- NOTE | 2024-03-27 00:57 | PC.NURSE ---
pt in CT
[2024-03-27] MEDS: iohexoL 350 MG/ML 100 ML INFUS..BTL 85 ML IV (01:02)
[2024-03-27 03:53] VITALS: BP 117/57; PULSE 85; RESP 13; TEMP 36.8; O2SAT 99
[2024-03-27 05:33] VITALS: BP 135/75; PULSE 82; RESP 14; TEMP 36.7; O2SAT 97
[2024-03-27 05:54] VITALS: BP 135/75; PULSE 82; RESP 14; TEMP 36.7; O2SAT 97
== END 2024-03-27 05:55 | disposition home or self-care (01) ==
PROVIDERS: Physician Assistant; Physician Assistant Medical; Emergency Provider Emergency Medicine
DX: K59.00 Constipation, unspecified (principal); H93.13 Tinnitus, bilateral; R06.02 Shortness of breath; R51.9 Headache, unspecified; R10.13 Epigastric pain; R11.2 Nausea with vomiting, unspecified; R42 Dizziness and giddiness; I10 Essential (primary) hypertension; F11.90 Opioid use, unspecified, uncomplicated; Z79.899 Other long term (current) drug therapy
CPT/HCPCS: 36415; 74177; 80053; 80307; 81001; 83690; 83735; 84484; 85025; 85610; 85730; 93005; 96361; 96365; 96366; 96375; 99285; J2060; J2405; J3475; Q9967

== ENCOUNTER → 2024-03-26 16:50 | Outpatient (BNV) | payer BC, SELFPAY | PROVIDERS: Emergency Provider Emergency Medicine; Visit Provider Internal Medicine Cardiovascular Disease | DX: R94.31 Abnormal electrocardiogram [ECG] [EKG] (principal) | CPT/HCPCS: 93010 ==